=== PATIENT | male | born 1955 | race Caucasian/White ===

== ENCOUNTER 2023-12-02 23:03 | Inpatient (IN) | payer OTHER ==
[~2023-12-02] VITALS: Ht 175.3 cm; Wt 85.9 kg
[2023-12-03] VITALS (9 sets, daily range): BP systolic 95–118; BP diastolic 60–70; PULSE 90–107; RESP 18; TEMP 97.3–99.3; O2SAT 94–97
[2023-12-03] MEDS ORDERED: NITROGLYCERIN 0.4 MG SL TAB SL PRN (01:00)
[2023-12-03] MEDS ORDERED: HYDROcodone-ACET 5/325MG TAB PO PRN (01:00)
[2023-12-03] MEDS ORDERED: ONDANSETRON HCL 4 MG/2 ML VIAL IV PRN (01:00)
[2023-12-03] MEDS ORDERED: MORPHINE SULFATE INJ 2 MG/ml SYRG IV PRN (01:00)
[2023-12-03] MEDS ORDERED: ACETAMINOPHEN 325 MG TAB PO PRN (01:00)
[2023-12-03] MEDS ORDERED: ATOR40TA52 PO (02:12)
[2023-12-03] MEDS ORDERED: POTA-36 PO (02:12)
[2023-12-03] MEDS ORDERED: SACU1TAB PO (02:12)
[2023-12-03] MEDS ORDERED: LEVO175T4 PO (02:12)
[2023-12-03] MEDS ORDERED: PANT40T PO (02:12)
[2023-12-03] MEDS ORDERED: FURO40TA4 PO (02:12)
[2023-12-03 06:06] LABS: Anion Gap 6 (5-15); Carbon Dioxide 27 mmol/L (20-30); Chloride 104 mmol/L (98-107); Potassium 4.2 mmol/L (3.5-5.1); Sodium 137 mmol/L (136-145)
[2023-12-03 06:07] LABS: Calcium 9.3 mg/dL (8.7-10.4)
[2023-12-03 06:11] LABS: Glucose 103 mg/dL (74-106)
[2023-12-03 06:12] LABS: BUN/Creatinine Ratio 12.4 (10.0-20.0); Blood Urea Nitrogen 15 mg/dL (9-23); LDL Cholesterol 55 mg/dL (< 100); Triglycerides 121 mg/dL (< 150)
[2023-12-03 06:13] LABS: Cholesterol 112 mg/dL (< 200)
[2023-12-03 06:14] LABS: Basophils # (auto) 0.1 10 ^3/uL (0-0.2); Basophils % (auto) 1.1 % (0.0-2.0); Eosinophils # (auto) 0.7 10 ^3/uL (0-0.8); Eosinophils % (auto) 7.1 % (0.0-7.0); HDL Cholesterol 37 mg/dL (40-59); Hematocrit 37.4 % (41.0-53.0); Lymphocytes # (auto) 1.1 10 ^3/uL (0.4-5.4); Lymphocytes % (auto) 12.1 % (10.0-50.0); Mean Corpuscular Hemoglobin 32.4 pg (28.0-32.0); Mean Corpuscular Hgb Conc. 34.6 g/dL (32.0-36.0); Mean Corpuscular Volume 93.5 fL (80.0-100.0); Monocytes # (auto) 0.7 10 ^3/uL (0-1.3); Monocytes % (auto) 7.9 % (0.0-12.0); Neutrophils # (auto) 6.6 10 ^3/uL (1.6-8.6); Neutrophils % (auto) 71.8 % (37.0-80.0); Platelet Count (auto) 290 10^3/uL (140-450); Red Blood Cells 4.01 10^6/uL (4.5-5.90); Red Cell Distribution Width 13.9 % (11.8-14.3); White Blood Cell 9.2 10^3/uL (4.4-10.8)
[2023-12-03] MEDS: FAMOTIDINE 20 MG TAB PO SCH (09:05)
[2023-12-03] MEDS: ASPirin 81 mg TAB PO SCH (09:05)
[2023-12-03] MEDS: ENOXAPARIN SOD 100 MG/1 ML SYRINGE SC SCH (09:06)
[2023-12-03] MEDS: FUROSEMIDE 40 MG/4 ML VIAL IV SCH (09:06)
[2023-12-03] MEDS: ATORVASTATIN 20 MG TAB PO SCH (21:19)
[2023-12-03] MEDS: POTASSIUM CHLORIDE 8 MEQ TAB PO SCH (21:20)
[2023-12-04] VITALS (13 sets, daily range): BP systolic 92–116; BP diastolic 42–72; PULSE 89–112; RESP 14–20; TEMP 97.3–98.6; O2SAT 91–96
[2023-12-04 06:29] LABS: Anion Gap 6 (5-15); Carbon Dioxide 27 mmol/L (20-30); Chloride 102 mmol/L (98-107); Potassium 4.2 mmol/L (3.5-5.1); Sodium 135 mmol/L (136-145)
[2023-12-04 06:30] LABS: Calcium 9.3 mg/dL (8.7-10.4)
[2023-12-04 06:31] LABS: Basophils # (auto) 0.1 10 ^3/uL (0-0.2); Basophils % (auto) 0.9 % (0.0-2.0); Eosinophils # (auto) 0.5 10 ^3/uL (0-0.8); Eosinophils % (auto) 6.7 % (0.0-7.0); Hematocrit 37.5 % (41.0-53.0); Hemoglobin 12.9 g/dL (13.5-17.5); Lymphocytes # (auto) 1.2 10 ^3/uL (0.4-5.4); Lymphocytes % (auto) 15.7 % (10.0-50.0); Mean Corpuscular Hgb Conc. 34.3 g/dL (32.0-36.0); Mean Corpuscular Volume 93.2 fL (80.0-100.0); Monocytes # (auto) 0.7 10 ^3/uL (0-1.3); Monocytes % (auto) 8.7 % (0.0-12.0); Neutrophils # (auto) 5.2 10 ^3/uL (1.6-8.6); Platelet Count (auto) 300 10^3/uL (140-450); Red Blood Cells 4.03 10^6/uL (4.5-5.90); Red Cell Distribution Width 13.9 % (11.8-14.3); White Blood Cell 7.6 10^3/uL (4.4-10.8)
[2023-12-04 06:35] LABS: Blood Urea Nitrogen 20 mg/dL (9-23); Glucose 97 mg/dL (74-106)
[2023-12-04 06:37] LABS: BUN/Creatinine Ratio 15.6 (10.0-20.0)
[2023-12-04] MEDS: IODIXANOL 320MG/ML 100ML BTL IV ONE ×2 (07:33→08:39)
[2023-12-04] MEDS: LIDOCAINE 2%HCL (LOCAL ANESTH.) INJ 20ML MDV ONE (08:03)
[2023-12-04] MEDS: ANGIOMAX 250 MG VIAL IV ONE (08:06)
[2023-12-04] MEDS: HEPARIN SODIUM (PORCINE) 5000 UNITS/ML 1ML VIAL ONE (08:06)
[2023-12-04] MEDS: VERAPAMIL 2.5MG/ML INJ 2ML VIAL IV ONE (08:06)
[2023-12-04] MEDS: fentaNYL CITRATE 100 MCG/2 ML VL ONE (08:07)
[2023-12-04] MEDS: MIDAZOLAM HCL 2MG/2ML 2ml VIAL (1mg/ml) ONE (08:07)
[2023-12-04] MEDS: SODIUM CHL 0.9% 0 ML ONE (08:07)
[2023-12-04] MEDS: PHENYLEPHRINE HCL 10 MG/ML VL ONE (09:03)
[2023-12-04 09:09] LABS: INR 1.22 (0.9-1.15); Partial Thromboplastin Time 34.7 SEC (24.5-34.5); Prothrombin Time 12.7 sec (9.3-11.8)
[2023-12-04] MEDS: CARVEDILOL 3.125 MG TAB PO SCH (22:04)
[2023-12-05 01:00] VITALS: BP 106/68; PULSE 94; RESP 16; TEMP 98.9; O2SAT 93
[2023-12-05 05:00] VITALS: BP 108/64; PULSE 92; RESP 17; TEMP 98.8; O2SAT 96
[2023-12-05 06:05] LABS: Basophils # (auto) 0.1 10 ^3/uL (0-0.2); Basophils % (auto) 0.8 % (0.0-2.0); Eosinophils # (auto) 0.5 10 ^3/uL (0-0.8); Eosinophils % (auto) 7.7 % (0.0-7.0); Hematocrit 35.5 % (41.0-53.0); Hemoglobin 12.4 g/dL (13.5-17.5); Lymphocytes # (auto) 0.9 10 ^3/uL (0.4-5.4); Lymphocytes % (auto) 13.6 % (10.0-50.0); Mean Corpuscular Hemoglobin 32.6 pg (28.0-32.0); Mean Corpuscular Volume 93.1 fL (80.0-100.0); Monocytes # (auto) 0.6 10 ^3/uL (0-1.3); Monocytes % (auto) 9.3 % (0.0-12.0); Neutrophils # (auto) 4.6 10 ^3/uL (1.6-8.6); Neutrophils % (auto) 68.6 % (37.0-80.0); Nucleated Red Blood Cells % 0.1 %; Platelet Count (auto) 285 10^3/uL (140-450); Red Blood Cells 3.81 10^6/uL (4.5-5.90); Red Cell Distribution Width 14.4 % (11.8-14.3); White Blood Cell 6.7 10^3/uL (4.4-10.8)
[2023-12-05 06:22] LABS: Chloride 100 mmol/L (98-107); Potassium 4.4 mmol/L (3.5-5.1); Sodium 137 mmol/L (136-145)
[2023-12-05 06:23] LABS: Anion Gap 8 (5-15); Calcium 9.1 mg/dL (8.7-10.4); Carbon Dioxide 29 mmol/L (20-30)
[2023-12-05 06:28] LABS: BUN/Creatinine Ratio 16.2 (10.0-20.0); Blood Urea Nitrogen 21 mg/dL (9-23); Glucose 100 mg/dL (74-106)
[2023-12-05 08:00] VITALS: BP 92/55; PULSE 86; PULSE 92; RESP 20; TEMP 97.8; O2SAT 96
[2023-12-05] MEDS: LEVOTHYROXINE SODIUM 25 MCG TAB PO SCH (09:47)
[2023-12-05] MEDS: LEVOTHYROXINE SODIUM 100 MCG TAB PO SCH (09:47)
[2023-12-05] MEDS: SACUBITRIL-VALSARTAN 24mg/26mg TAB PO SCH (09:48)
[2023-12-05] MEDS: LEVOTHYROXINE SODIUM 50 MCG TAB PO SCH (09:54)
[2023-12-05] MEDS: FUROSEMIDE 40 MG TAB PO SCH (09:54)
[2023-12-05] MEDS ORDERED: ASPI81TA28 PO (10:22)
[2023-12-05 11:57] VITALS: BP 93/55; PULSE 93; RESP 18; TEMP 98.1; O2SAT 96
[2023-12-05 12:30] VITALS: BP 117/54; PULSE 94
== END 2023-12-05 13:53 | disposition home or self-care (01) | DRG 286 ==
LOC: EAST 12-03 00:49 → TELE-E-ADS 12-03 00:50
PROVIDERS: ADMIT Internal Medicine; ATTEND Hospitalist
PROC: 4A023N7 Measurement of Cardiac Sampling and Pressure, Left Heart, Percutaneous Approach (ICD-10-PCS; principal; 2023-12-04)
PROC: B211YZZ Fluoroscopy of Multiple Coronary Arteries using Other Contrast (ICD-10-PCS; 2023-12-04)
PROC: B215YZZ Fluoroscopy of Left Heart using Other Contrast (ICD-10-PCS; 2023-12-04)
PROC: B310YZZ Fluoroscopy of Thoracic Aorta using Other Contrast (ICD-10-PCS; 2023-12-04)
DX: I11.0 Hypertensive heart disease with heart failure (principal); I50.43 Acute on chronic combined systolic (congestive) and diastolic (congestive) heart failure; I25.10 Atherosclerotic heart disease of native coronary artery without angina pectoris; I42.0 Dilated cardiomyopathy; Z95.5 Presence of coronary angioplasty implant and graft; I25.2 Old myocardial infarction
CPT/HCPCS: 36415; 80048; 80061; 83880; 84484; 85025; 85610; 85730; 93306; 93458; 93567; 99152; G0378; J2250; Q9967

== ENCOUNTER 2024-01-27 12:21 | Inpatient (IN) | payer OTHER ==
[~2024-01-27] VITALS: Ht 175.3 cm; Wt 98.6 kg
[~2024-01-27 12:21] MED LIST: ASPI81TA28 PO; ATOR40TA52 PO; DAPA1TAB4 PO; FURO40TA4 PO; LEVO175T4 PO; PANT40T PO; POTA-36 PO; SACU1TAB PO
[2024-01-27 13:32] LABS: Basophils # (auto) 0 10 ^3/uL (0-0.2); Basophils % (auto) 0.2 % (0.0-2.0); Eosinophils # (auto) 0 10 ^3/uL (0-0.8); Hematocrit 47.5 % (41.0-53.0); Hemoglobin 15.5 g/dL (13.5-17.5); Lymphocytes # (auto) 0.6 10 ^3/uL (0.4-5.4); Lymphocytes % (auto) 6.5 % (10.0-50.0); Mean Corpuscular Hemoglobin 29.9 pg (28.0-32.0); Mean Corpuscular Hgb Conc. 32.7 g/dL (32.0-36.0); Mean Corpuscular Volume 91.6 fL (80.0-100.0); Monocytes # (auto) 0.7 10 ^3/uL (0-1.3); Monocytes % (auto) 7.5 % (0.0-12.0); Neutrophils # (auto) 7.6 10 ^3/uL (1.6-8.6); Neutrophils % (auto) 85.8 % (37.0-80.0); Nucleated Red Blood Cells % 0.1 %; Platelet Count (auto) 314 10^3/uL (140-450); Red Blood Cells 5.18 10^6/uL (4.5-5.90); Red Cell Distribution Width 15.5 % (11.8-14.3); White Blood Cell 8.8 10^3/uL (4.4-10.8)
[2024-01-27 13:40] LABS: Chloride 104 mmol/L (98-107); Sodium 137 mmol/L (136-145)
[2024-01-27 13:41] LABS: Anion Gap 11 (5-15); Calcium 10.2 mg/dL (8.7-10.4); Carbon Dioxide 22 mmol/L (20-31)
[2024-01-27 13:46] LABS: BUN/Creatinine Ratio 31.2 (10.0-20.0); Blood Urea Nitrogen 69 mg/dL (9-23); Glucose 129 mg/dL (74-106)
[2024-01-27 13:56] LABS: Potassium 6.4 mmol/L (3.5-5.1)
[2024-01-27 14:29] LABS: Urine Bacteria FEW /hpf (None Seen); Urine Blood Negative /uL (Negative); Urine Color Yellow (Yellow); Urine Hyaline Cast MANY /lpf (0 - 2); Urine Mucus FEW (None Seen); Urine Protein, UAD 1+ (Negative); Urine Specific Gravity 1.022 (1.001-1.035); Urine Urobilinogen 2 mg/dL (Negative); Urine WBC 2 /hpf (0 - 3)
[2024-01-27 14:30] LABS: Urine Clarity Clear (Clear)
[2024-01-27] MEDS: ALBUTEROL SULF 2.5 MG/0.5ML(0.5%) NEB SOLN NEB ONE (14:44)
[2024-01-27] MEDS: CALCIUM GLUC 1,000mg/50ml-NS 50 ML IV ONE (14:58)
[2024-01-27 15:09] VITALS: PULSE 108; RESP 16; O2SAT 99
[2024-01-27] MEDS: FUROSEMIDE 20 MG/2 ML VIAL IV ONE (15:11)
[2024-01-27] MEDS: SODIUM BICARB 8.4% 50Meq/50ml SYR INJ IV ONE (15:21)
[2024-01-27] MEDS: SODIUM ZIRCONIUM CYCL 10 GM PAK PO ONE (15:22)
[2024-01-27] MEDS: DEXTROSE (50%) 50ML SYRG IV ONE (15:22)
[2024-01-27] MEDS: InsuLIN REG 1unit/0.01ml Soln (100units/ml) IV ONE (15:23)
[2024-01-27] MEDS ORDERED: MORPHINE SULFATE INJ 2 MG/ml SYRG IV PRN (16:30)
[2024-01-27] MEDS ORDERED: NITROGLYCERIN 0.4 MG SL TAB SL PRN (16:30)
[2024-01-27 18:43] VITALS: O2SAT 95
[2024-01-27 20:00] VITALS: PULSE 106; PULSE 109; RESP 19; O2SAT 93
[2024-01-27] MEDS: DOCUSATE SOD 100 MG CAP PO ONE (20:32)
[2024-01-27] MEDS: ONDANSETRON HCL 4 MG/2 ML VIAL IV ONE (20:32)
[2024-01-27 21:00] VITALS: BP 97/64; PULSE 106; TEMP 97.3; O2SAT 93
[2024-01-27] MEDS: ATORVASTATIN 20 MG TAB PO SCH (21:08)
[2024-01-27] MEDS: CARVEDILOL 3.125 MG TAB PO SCH (21:09)
[2024-01-27 23:04] LABS: Anion Gap 9 (5-15); Carbon Dioxide 20 mmol/L (20-31); Chloride 106 mmol/L (98-107); Sodium 135 mmol/L (136-145)
[2024-01-27 23:05] LABS: Calcium 9.4 mg/dL (8.7-10.4)
[2024-01-27 23:10] LABS: BUN/Creatinine Ratio 25.7 (10.0-20.0); Glucose 111 mg/dL (74-106)
[2024-01-27 23:36] LABS: Blood Urea Nitrogen 52 mg/dL (9-23)
[2024-01-28] VITALS (8 sets, daily range): BP systolic 84–95; BP diastolic 53–86; PULSE 80–101; RESP 16–19; TEMP 97.5–98.6; O2SAT 94–99
[2024-01-28] MEDS ORDERED: PROCHLORPERAZINE EDISYLATE 5 MG/ML 2ML VIAL IV PRN (00:15)
[2024-01-28] MEDS: LEVOTHYROXINE SODIUM 175 MCG PO SCH (06:38)
[2024-01-28 07:30] LABS: Chloride 105 mmol/L (98-107); Potassium 4.9 mmol/L (3.5-5.1); Sodium 136 mmol/L (136-145)
[2024-01-28 07:31] LABS: Anion Gap 10 (5-15); Carbon Dioxide 21 mmol/L (20-31)
[2024-01-28 07:32] LABS: Calcium 9.3 mg/dL (8.7-10.4)
[2024-01-28 07:36] LABS: Glucose 97 mg/dL (74-106)
[2024-01-28 07:46] LABS: BUN/Creatinine Ratio 30.1 (10.0-20.0); Blood Urea Nitrogen 58 mg/dL (9-23)
[2024-01-28] MEDS: ASPirin-EC 81 mg tab PO SCH (09:08)
[2024-01-28] MEDS: PANTOPRAZOLE 40 MG TAB PO SCH (09:08)
[2024-01-28] MEDS ORDERED: PATIENTS OWN MEDICATION (Atorvastatin Calcium 1 TAB) PO SCH (10:00)
[2024-01-28] MEDS ORDERED: LEVOTHYROXINE SODIUM 175 MCG PO SCH (10:00)
[2024-01-28] MEDS: MAGNESIUM CITRATE SOLUTION 300 ML BTL PO ONE (10:45)
[2024-01-28 11:35] LABS: Protein, Urine 61.8 mg/dL (1-14)
[2024-01-28 11:37] LABS: Creatinine, Urine 134.5 mg/dL (30.0-125.0)
[2024-01-28] MEDS: CARVEDILOL 3.125 MG TAB PO SCH (12:15)
[2024-01-28] MEDS: MIDODRINE HCL 10 MG TAB PO SCH (17:25)
[2024-01-28] MEDS: BUMETANIDE 1mg/4ml VIAL (0.25mg/ml) IV SCH (17:26)
[2024-01-29] VITALS (8 sets, daily range): BP systolic 94–105; BP diastolic 61–68; PULSE 53–94; RESP 17–19; TEMP 97.9–98.5; O2SAT 95–100
[2024-01-29] MEDS: LEVOTHYROXINE SODIUM 100 MCG TAB PO SCH (06:35)
[2024-01-29] MEDS: LEVOTHYROXINE SODIUM 50 MCG TAB PO SCH (06:35)
[2024-01-29 07:35] LABS: Calcium 9.5 mg/dL (8.7-10.4); Chloride 101 mmol/L (98-107); Potassium 5.4 mmol/L (3.5-5.1); Sodium 133 mmol/L (136-145)
[2024-01-29 07:36] LABS: Anion Gap 12 (5-15); Carbon Dioxide 20 mmol/L (20-31)
[2024-01-29 07:41] LABS: BUN/Creatinine Ratio 29.3 (10.0-20.0); Blood Urea Nitrogen 60 mg/dL (9-23); Glucose 89 mg/dL (74-106)
[2024-01-29] MEDS: POLYETHYLENE GLYCOL 17 GM PWDR PO PRN (09:14)
[2024-01-29 14:10] LABS: Urine Bacteria None Seen /hpf (None Seen)
[2024-01-29 14:27] LABS: Urine Blood 3+ /uL (Negative); Urine Clarity Turbid (Clear); Urine Color Light-Orange (Yellow); Urine Hyaline Cast MANY /lpf (0 - 2); Urine Mucus FEW (None Seen); Urine Protein, UAD 2+ (Negative); Urine Specific Gravity 1.014 (1.001-1.035); Urine Urobilinogen Normal (Negative); Urine WBC 21 /hpf (0 - 3); Urine pH 5.5 (5.0-9.0)
[2024-01-29] MEDS: SODIUM ZIRCONIUM CYCL 10 GM PAK PO ONE (14:56)
[2024-01-29] MEDS: SODIUM ZIRCONIUM CYCL 10 GM PAK PO SCH (14:56)
[2024-01-30 01:00] VITALS: BP 97/67; PULSE 84; RESP 18; TEMP 97.7; O2SAT 94
[2024-01-30 05:00] VITALS: BP 95/62; PULSE 83; RESP 19; TEMP 97.6; O2SAT 95
[2024-01-30 05:56] LABS: Chloride 101 mmol/L (98-107); Potassium 4.9 mmol/L (3.5-5.1); Sodium 133 mmol/L (136-145)
[2024-01-30 05:57] LABS: Anion Gap 12 (5-15); Calcium 8.9 mg/dL (8.7-10.4); Carbon Dioxide 20 mmol/L (20-31)
[2024-01-30 06:02] LABS: BUN/Creatinine Ratio 32.1 (10.0-20.0); Glucose 91 mg/dL (74-106)
[2024-01-30 06:20] LABS: Blood Urea Nitrogen 70 mg/dL (9-23)
[2024-01-30 08:00] VITALS: PULSE 99
[2024-01-30 09:00] VITALS: BP 100/70; PULSE 91; RESP 18; TEMP 97.8; O2SAT 92
[2024-01-30 13:00] VITALS: BP 102/53; PULSE 61; RESP 16; TEMP 98; O2SAT 96
[2024-01-30] MEDS ORDERED: SODI5PAK PO (14:45)
[2024-01-30] MEDS: LACTULOSE 20Gm/30ML SOLN PO ONE (15:09)
[2024-01-30 16:46] VITALS: BP 102/53; PULSE 61; RESP 16; TEMP 98; O2SAT 96
== END 2024-01-30 18:36 | disposition home or self-care (01) | DRG 640 ==
LOC: ER 12:34 → TELE 16:29 → TELE-WESTW 18:34
PROVIDERS: ADMIT Hospitalist; ATTEND Hospitalist
DX: E87.5 Hyperkalemia (principal); I50.23 Acute on chronic systolic (congestive) heart failure; I13.0 Hypertensive heart and chronic kidney disease with heart failure and stage 1 through stage 4 chronic kidney disease, or unspecified chronic kidney disease; N17.9 Acute kidney failure, unspecified; I42.0 Dilated cardiomyopathy; K59.00 Constipation, unspecified; I25.5 Ischemic cardiomyopathy; E03.9 Hypothyroidism, unspecified; E78.5 Hyperlipidemia, unspecified; I25.10 Atherosclerotic heart disease of native coronary artery without angina pectoris; N40.0 Benign prostatic hyperplasia without lower urinary tract symptoms; K57.30 Diverticulosis of large intestine without perforation or abscess without bleeding; N18.30 Chronic kidney disease, stage 3 unspecified
CPT/HCPCS: 36415; 74176; 76775; 80048; 81001; 82570; 82962; 84156; 84300; 85025; 93005; 94640; 96365; 96375; 99291; 99292; G0378; J1815; J2405